=== PATIENT | female | born 1965 | race Caucasian/White ===

== ENCOUNTER 2021-02-01 14:21 | Emergency (ER) | payer OTHER ==
[~2021-02-01] VITALS: Ht 167.6 cm; Wt 65.8 kg
[~2021-02-01 14:21] MED LIST: ARMOUR THYROID60 MG PO; DEPLIN-ALGAL O1 EAC1 PO; FLUTICASONE PRO16 GM NAS; L-METHYLFOLATE15 M1 PO; MENEST0.3 MG PO; MENEST0.625 MG PO; PERCOCET 7.5-31 EACH PO; SUDOGEST30 MG PO; VITAMIN D5000 UNIT PO; ZYRTEC10 MG PO
[2021-02-01] MEDS ORDERED: VENTOLIN HFA18 GM INH (18:24)
== END 2021-02-01 20:00 | disposition home or self-care (01) ==
LOC: ED 14:21
DX: U07.1 COVID-19 (principal); Z88.0 Allergy status to penicillin; Z88.5 Allergy status to narcotic agent; Z91.041 Radiographic dye allergy status; Z88.6 Allergy status to analgesic agent; Z79.899 Other long term (current) drug therapy
CPT/HCPCS: 99283-25; M0243; Q0244

== ENCOUNTER 2021-03-16 14:35 | Emergency (ER) | payer OTHER ==
[~2021-03-16] VITALS: Ht 167.6 cm; Wt 65.8 kg
[~2021-03-16 14:35] MED LIST changes: +VENTOLIN HFA18 GM INH
--- OUTSIDE RECORDS SUMMARY | 2021-03-16 14:42 | XMS ---
PreManage Notification: BERNARDO HACKETT Security [employer] Events No recent Security Events currently on file CRITERIA MET - ED - Positive COVID-19 Lab Result - [facility] C[facility] PROVIDERS There are no care providers on record at this time. Angela has no Care Guidelines for this patient. [facility] VISIT COUNT (12 MO.) 2 [facility] TOTAL 2 NOTE: Visits indicate total known visits. ED/C VISIT TRACKING (12 MO.) 03/16/2021 14:36 [facility] [place] TYPE: Emergency COMPLAINT: - LT FOOT INJURY 02/01/2021 14:[address] [facility] [place] TYPE: Emergency COMPLAINT: - FLU SYMPTOMS DIAGNOSES: - COVID-19 - Allergy status to penicillin - Allergy status to analgesic agent - Other vermin exterminator (current) drug therapy - Radiographic dye allergy status - Allergy status to narcotic agent INPATIENT VISIT TRACKING (12 MO.) No inpatient visits to display in this time frame [email or web address]
[2021-03-16] MEDS ORDERED: CRUTCH1 EACH MISC (17:38)
[2021-03-16] MEDS ORDERED: HYDROCODON-ACE1 EA10 PO (17:38)
== END 2021-03-16 18:04 | disposition home or self-care (01) ==
LOC: ED 14:35
DX: S92.312A Displaced fracture of first metatarsal bone, left foot, initial encounter for closed fracture (principal); X50.9XXA Other and unspecified overexertion or strenuous movements or postures, initial encounter; Z88.8 Allergy status to other drugs, medicaments and biological substances; Z88.5 Allergy status to narcotic agent; Z88.0 Allergy status to penicillin; Z91.041 Radiographic dye allergy status; Z79.899 Other long term (current) drug therapy
CPT/HCPCS: 29515; 73630; 73700; 99284-25

== ENCOUNTER 2022-05-23 11:53 | Day surgery (SDC) | payer OTHER ==
[~2022-05-23] VITALS: Ht 170.2 cm; Wt 66.0 kg
[~2022-05-23 11:53] MED LIST changes: +CLARITIN10 MG PO; +CRUTCH1 EACH MISC; +FISH OIL 1,001000 MG PO; +HYDROCODON-ACE1 EA10 PO; +PHOSPHATIDYL S100 GM PO; +PSEUDOEPHEDRINE30 MG PO; +VITAMIN B COMP1 EAC1 PO; +VITAMIN D310 MC4 PO
[2022-05-23] MEDS ORDERED: MAGNESIUM250 MG PO (12:42)
[2022-05-23] MEDS ORDERED: CALCIUM500 MG PO (12:42)
[2022-05-23] MEDS ORDERED: METHYLFOLATE1 EACH PO (12:43)
[2022-05-23] MEDS ORDERED: NAC600 MG PO (12:43)
--- NOTE | 2022-05-23 14:02 | NUR ---
PT IS ALERT, ORIENTED AND SUPPORTED BY HER CURLY. RN MARIO REQUESTED I REMAIN AND DISTRACT PT. I AM FAMILIAR WITH PT, SHE HAS HAD SCOPES PREVIOUS, AND SEEMED TO APPROPRIATELY HANDLE FACT THAT HER PROCEDURE WILL BE DELAYED AT LEAST I-2 HRS. GAVE ENCOURAGEMENT, CURLY WILL RETURN LATER. PT REQUESTED PRAYER WILL FOLLOW
--- NOTE | 2022-05-23 15:03 | NUR ---
1255: PATIENT CHECKED IN FOR PROCEDURE COMPLETE. PATIENT INFORMED DR IS STILL IN SURGERY WITH A PROCEDURE SCHEDULED AHEAD OF HER, SO THERE WILL BE A DELAY. PATIENT GIVEN MULTIPLE WARM BLANKETS. PUG MILL OPERATOR HELPER ELDER IN TO VISIT WITH PATIENT AND . CALL LIGHT WITHIN REACH. 1320: PATIENT INFORMED OF SIGNIFICANT DELAY IN HER PROCEDURE START TIME. INFORMED THAT SURGERY DR IS IN HAS AT LEAST ANOTHER HOUR AND AN ADDITIONAL HOUR FOR PROCEDURE AHEAD OF HERS. 1500: PATIENT INFORMED THAT SURGERY DR WAS IN IS NOW FINISHED. ONE PROCEDURE AHEAD OF HER. PATIENT ASSITED UP TO BATHROOM. GIVEN WARM BLANKET WHEN RETURNED FROM BATHROOM.
--- NOTE | 2022-05-23 17:25 | NUR ---
05/23/22 1725 Magy Rucker 1621 PT ARRIVED IN PACU SLEEPY. ABD SOFT. 1640 DR AT BEDSIDE. ALL QUESTIONS ANSWERED. 1650 SITTING AT SIDE OF BED SIPPING ON WATER. 1700 DC INSTRUCTIONS GIVEN. 1712 LEFT VIA W/C.
--- NOTE | 2022-05-23 17:43 | OR ---
[facility] [address], [place] [address] Signed DATE OF OPERATION: 05/23/2022 SURGEON: Curly Dee MD PREOPERATIVE DIAGNOSIS: History of sigmoid resection for diverticular disease in 2014. POSTOPERATIVE DIAGNOSES: 1. Small polyp of cecum (excised). 2. Minimal diverticular changes. PROCEDURE: Total colonoscopy to cecum with cold morcellation polypectomy x1. ANESTHESIA: Intravenous sedation, fentanyl 100 mcg and Versed 5 mg. INDICATION: This 57-year-old white woman is a patient of Kandy Lee and well known to me from the past. She underwent sigmoid resection by me for diverticular disease in 2014. Her last colonoscopy was at that time as well. A diminutive polyp was noted previously, which was hyperplastic. She has no family history of colon cancer and no current symptoms related to the colon. She is admitted to undergo screening colonoscopy. She understands the risk of bleeding, infection, and perforation. FINDINGS: The prep was good. Complete colonoscopy was undertaken to the cecum without question. She had a small polyp of the cecum, which was excised. There were a few scattered diverticula. The anastomosis was widely patent without sign of stricture. DESCRIPTION OF PROCEDURE: The patient was brought to the endoscopy suite and placed in the lateral decubitus position, given intravenous sedation points slurred speech and nystagmus. Digital rectal examination was normal. An Olympus video colonoscope was passed in the rectum and manipulated throughout the colon ultimately intubating the cecum itself. The ileocecal valve and appendiceal orifice were normal. A small polyp was noted in the cecum, this was excised with cold morcellation technique. Scope was withdrawn and remaining colon was normal except for a few scattered diverticula. Anastomosis (coloproctostomy) was barely noticeable. There Electronically Signed By: CURLY DEE MD 05/23/22 1743 PATIENT NAME: BERNARDO HACKETT OPERATIVE REPORT DATE OF : 61 REPORT #: [id number] PHYSICIAN: CURLY DEE MD PCP: KANDY LEE REPORT IS CONFIDENTIAL AND NOT TO BE RELEASED WITHOUT AUTHORIZATION [facility] [address], [place] [address] Signed was certainly no evidence of stricture. The rectum was normal on retroflexed view. The scope was removed. The patient was taken to the recovery room in good condition. CONCLUDING DIAGNOSIS: Polyp of cecum. PLAN: Recommend repeat colonoscopy in 3 to 5 years considering the polyps, sooner if symptoms should recur. Recommend high-fiber diet otherwise. MD ENRRIQUE Jose/MODL /[id number] cc: SHAMIKA An Copies: KANDY LEE ~ Electronically Signed By: CURLY DEE MD 05/23/22 1743 PATIENT NAME: BERNARDO HACKETT OPERATIVE REPORT DATE OF : 61 REPORT #: [id number] PHYSICIAN: CURLY DEE MD PCP: KANDY LEE REPORT IS CONFIDENTIAL AND NOT TO BE RELEASED WITHOUT AUTHORIZATION
--- NOTE | 2022-05-25 16:42 | PATH ---
[facility] [address] [place], [place] [address] Signed SPECIMEN(S): A CECUM POLYP SPECIMEN SOURCE: A. CECUM POLYP CLINICAL HISTORY: Surveillance colonoscopy, personal history of diverticulosis. Postop Dx: Polyp x 1, diverticulosis. FINAL PATHOLOGIC DIAGNOSIS: Cecum polyp: - Benign colonic mucosa with a submucosal lymphoid aggregate with reactive features. - Negative for pathologic inflammation. - Negative for epithelial dysplasia. JVR:[id number] MICROSCOPIC EXAMINATION: Histologic sections of all submitted blocks are examined by light microscopy. These findings, together with the gross examination, support the pathologic diagnosis. GROSS DESCRIPTION: The specimen, labeled and designated "Latourette, cecum polyp," is received in formalin and consists of five mckee soft tissue fragments, ranging from 0.2-0.3 cm. Entirely submitted in (A1). VB (under the direct supervision of a pathologist) The Gross Description was prepared using a voice recognition system. The report was reviewed for accuracy; however, sound-alike word errors, addition and/or deletions may occur. If there is any question about this report, please contact Client Services. PERFORMING LABORATORY: The technical component was performed by [facility], [address] [place] [id number] (CLIA# [id number]). The professional interpretation was performed by [facility], [facility], [address] [place] [address] (CLIA#: [id number]). Diagnostician: Keshav Manzo MD Pathologist Electronically Signed 05/25/2022 PATIENT NAME: BERNARDO HACKETT PATHOLOGY DATE OF : 61 REPORT #: [id number] PHYSICIAN: [facility] PCP: KANDY THOMAS REPORT IS CONFIDENTIAL AND NOT TO BE RELEASED WITHOUT AUTHORIZATION [address] [address] Signed Copies: ~ PATIENT NAME: BERNARDO HACKETT PATHOLOGY DATE OF : 61 REPORT #: [id number] PHYSICIAN: [facility] PCP: KANDY THOMAS REPORT IS CONFIDENTIAL AND NOT TO BE RELEASED WITHOUT AUTHORIZATION
== END 2022-05-23 17:12 | disposition home or self-care (01) ==
LOC: DS 11:53 → OPS 11:53 → DS 13:00 → OPS 13:00
PROVIDERS: ATTEND Surgery
PROC: 0DBH8ZZ Excision of Cecum, Via Natural or Artificial Opening Endoscopic (ICD-10-PCS; principal; 2022-05-23 13:00)
DX: Z12.11 Encounter for screening for malignant neoplasm of colon (principal); K63.5 Polyp of colon; K57.30 Diverticulosis of large intestine without perforation or abscess without bleeding; I44.7 Left bundle-branch block, unspecified; Z90.49 Acquired absence of other specified parts of digestive tract; Z86.010 Personal history of colon polyps; Z90.710 Acquired absence of both cervix and uterus; Z88.6 Allergy status to analgesic agent; Z88.8 Allergy status to other drugs, medicaments and biological substances
CPT/HCPCS: 99153; G0500; J2250; J3010; J7121